=== PATIENT | male | born 1950 | race Caucasian/White ===

== ENCOUNTER 2024-04-03 16:24 | Observation (INO) | payer MEDICARE, BC ==
[~2024-04-03] VITALS: Ht 180.3 cm; Wt 92.0 kg
[~2024-04-03 16:24] MED LIST: AMLODIPINE5 MG OR; COZAAR100 MG PO; LEXAPRO20 MG OR; LISINOP/HCTZ1 TA1 OR; MIRTAZAPINE30 MG OR; NIFEDIPINE90 M1 PO; ONDANSETRON4 MG PO; PROSCAR5 MG PO; TAMSULOSIN0.4 MG PO
[2024-04-03 18:36] LABS: BASO% 0.7 % (0-3); EOS% 2.5 % (0-8); HEMATOCRIT 42.7 % (39.0-50.0); HEMOGLOBIN 13.8 g/dl (14.0-18.0); IMMATURE GRANULOCYTES 0.9 % (0.0-5.0); LYMPH% 10.1 % (15-41); MEAN CELL VOLUME 91.8 fL CALC (80.0-100.0); MEAN CORPUSCULAR HGB 29.7 pG CALC (26.0-32.0); MEAN CORPUSCULAR HGB CONC 32.3 g/dL CAL (32.0-36.0); MONO% 6.5 % (2-13); NEUT# 7.03 thou/uL (1.82-7.42); NEUT% 79.3 % (42-76); RED BLOOD COUNT 4.65 mill/uL (4.70-6.10); RED CELL DISTRI WIDTH 13.3 % (11.5-15.5)
[2024-04-03 18:49] LABS: ALBUMIN 4.4 g/dL (3.2-5.0); BILIRUBIN, TOTAL 0.6 mg/dL (0.2-1.3); CREATININE 1.1 mg/dL (0.7-1.3); POTASSIUM 4.2 mmol/l (3.5-5.1); TOTAL PROTEIN 7.7 g/dL (6.3-8.2)
[2024-04-03] MEDS ORDERED: ACETAMINOPHEN 325 MG/TAB PO PRN (20:15)
[2024-04-03] MEDS ORDERED: MAGNESIUM HYDROXIDE 30 ML UDC PO PRN (20:15)
[2024-04-03] MEDS ORDERED: Zaleplon 5 MG/CAP PO PRN (20:15)
[2024-04-03] MEDS ORDERED: SODIUM CHLORIDE 0.9% 1,000 ML IV SCH (20:15)
[2024-04-03] MEDS ORDERED: MORPHINE SULFATE 4 MG/ML VIAL IV PRN (20:20)
[2024-04-03] MEDS ORDERED: LACTATED RINGER'S 1,000 ML IV STA (20:20)
[2024-04-03] MEDS ORDERED: ENOXAPARIN SODIUM 40 MG/0.4 ML SYR SC SCH (21:00)
[2024-04-04 05:12] LABS: BASO% 0.8 % (0-3); EOS% 4.9 % (0-8); HEMATOCRIT 38.8 % (39.0-50.0); HEMOGLOBIN 12.6 g/dl (14.0-18.0); IMMATURE GRANULOCYTES 0.2 % (0.0-5.0); LYMPH% 19.7 % (15-41); MEAN CELL VOLUME 93.7 fL CALC (80.0-100.0); MEAN CORPUSCULAR HGB 30.4 pG CALC (26.0-32.0); MEAN CORPUSCULAR HGB CONC 32.5 g/dL CAL (32.0-36.0); MONO% 9.1 % (2-13); NEUT# 3.89 thou/uL (1.82-7.42); NEUT% 65.3 % (42-76); RED BLOOD COUNT 4.14 mill/uL (4.70-6.10); RED CELL DISTRI WIDTH 13.4 % (11.5-15.5)
[2024-04-04 05:24] LABS: BILIRUBIN, TOTAL 0.6 mg/dL (0.2-1.3); POTASSIUM 3.9 mmol/l (3.5-5.1); TOTAL PROTEIN 6.3 g/dL (6.3-8.2)
[2024-04-04 05:28] LABS: ALBUMIN 3.5 g/dL (3.2-5.0)
[2024-04-04] MEDS ORDERED: TAMSULOSIN HCL 0.4 MG CAP PO SCH (09:00)
[2024-04-04] MEDS ORDERED: FINASTERIDE 5 MG/TAB PO SCH (09:00)
[2024-04-04] MEDS ORDERED: LOSARTAN Potassium 50 MG/TAB PO SCH (09:00)
[2024-04-04] MEDS ORDERED: ESCITALOPRAM 10 MG/TAB PO SCH (09:00)
[2024-04-04] MEDS ORDERED: NIFEdipine SR 30 MG/TAB PO SCH (09:00)
[2024-04-04] MEDS ORDERED: PANTOPRAZOLE SODIUM Sesquihydr 40 MG/TAB PO SCH (10:00)
[2024-04-04 10:41] VITALS: BP 165/79
[2024-04-04 11:06] VITALS: BP 165/79
[2024-04-04] MEDS ORDERED: PANTOPRAZOLE SO40 M1 PO (13:51)
== END 2024-04-04 15:35 | disposition home or self-care (01) ==
LOC: ED 16:24 → ED-I 18:37 → ED 20:42 → ED-I 20:43 → MS2 04-04 06:37
PROVIDERS: Nurse Practitioner; Nurse Practitioner Family; ADMIT Internal Medicine; ATTEND Internal Medicine
DX: K40.30 Unilateral inguinal hernia, with obstruction, without gangrene, not specified as recurrent (principal); I10 Essential (primary) hypertension; F41.9 Anxiety disorder, unspecified; Z72.0 Tobacco use; Z87.11 Personal history of peptic ulcer disease; Z90.3 Acquired absence of stomach [part of]; K43.9 Ventral hernia without obstruction or gangrene
CPT/HCPCS: G0378; Q9967